=== PATIENT | female | born 1975 | race Caucasian/White ===

== ENCOUNTER 2020-09-30 14:00 | Emergency (ER) | payer BC ==
[2020-09-30] MEDS ORDERED: METHYLPREDNISOLONE 125 MG INJ ONE (18:18)
--- NOTE | 2020-09-30 18:26 | RAD REPORT ---
EXAM DESCRIPTION: RAD - Chest Single View - 09/30/2020 5:36 pm CLINICAL HISTORY: DYSPNEA COMPARISON: No comparisons FINDINGS: Widespread airspace disease bilaterally which is moderate in severity. The heart size is w ithin normal limits.No acute osseous abnormality. No significant pleural effusions or pneumothorax. IMPRESSION: Moderate to severe bilateral airspace disease concerning for multifocal pneumonia, inclu ding Covid-19.
[2020-09-30 20:37] LABS: Absolute Lymphocytes (CBC) 0.7 K/uL (0.7-4.9); Basophils % 0.2 % (0-1.3); Hematocrit 42.3 % (36.0-45.0); MPV 7.9 fL (7.6-11.3); RBC Red Blood Cell Count 5.14 M/uL (3.86-4.86)
[2020-09-30 20:56] LABS: ALT/SGPT 67 U/L (12-78); Albumin 2.8 g/dL (3.4-5.0); Alkaline Phosphatase 84 U/L (45-117); BUN Blood Urea Nitrogen 9 mg/dL (7-18); Bicarbonate 22 mmol/L (21-32); Bilirubin Direct 0.2 mg/dL (0-0.2); Bilirubin Total 0.6 mg/dL (0.2-1.0); Ferritin 615.7 ng/mL (8-388); Glucose Level 87 mg/dL (74-106); Lipase 52 U/L (73-393); Protein, Total 7.1 g/dL (6.4-8.2); Sodium Level 139 mmol/L (136-145); Troponin (Emerg Dept Use Only) < 0.02 ng/mL (0.0-0.045)
[2020-09-30 21:01] LABS: AST/SGOT 61 U/L (15-37); Potassium 4.4 mmol/L (3.5-5.1)
--- NOTE | 2020-10-01 00:11 | EDPHYS ---
Physician Documentation [facility] Name: Keeley Britt Age: 45 yrs Sex: Female : 1975 Arrival Date: 09/30/2020 Time: 14:03 Bed 14 Private MD: ED Physician Philip Campos HPI: 09/30 23:26 This 45 yrs old Female presents to ER via Wheelchair with complaints of kb Tingling in Arms, Cough. 23:27 The patient or guardian reports cough, that is intermittent, described as moderate, kb with no sputum, difficulty breathing, flu symptoms, low-grade fever, myalgias, no appetite. Onset: The symptoms/episode began/occurred 2 week(s) ago. Severity of symptoms: At their worst the symptoms were moderate, in the emergency department the symptoms are unchanged. Modifying factors: The symptoms are alleviated by nothing, the symptoms are aggravated by nothing. Associated signs and symptoms: Pertinent positives: fever, Pertinent negatives: chest pain, diarrhea, ear ache, nausea, rhinorrhea, sore throat, vomiting. The patient has not experienced similar symptoms in the past. The patient has been recently seen by a physician: with similar presenting complaints, and apparently given a diagnosis of Bronchitis, seen at clinic in [place]. Pt reports cough, congestion, fever, chills, shortness of breath, bodyaches, near syncope. Symptoms started 2 weeks ago and have been getting worse. . Historical: - Allergies: 14:36 Sulfa (Sulfonamide Antibiotics); ll1 14:36 bee sting; ll1 14:36 Betadine; ll1 - PMHx: 14:36 Asthma; ll1 - PSHx: 14:36 section; ll1 - Immunization history:: Client reports having NOT received the Covid vaccine. Flu vaccine is not up to date. - Social history:: Smoking status: Patient denies any tobacco usage or history of. ROS: 23:28 Cardiovascular: Negative for chest pain, palpitations, and edema. kb 23:28 Constitutional: Positive for body aches, chills, fatigue, fever, malaise. 23:28 Respiratory: Positive for cough, dyspnea on exertion, shortness of breath, Negative for hemoptysis, orthopnea, pleurisy, wheezing. 23:28 Abdomen/GI: Positive for diarrhea, Negative for abdominal pain, nausea and vomiting. 23:28 Neuro: Positive for near syncope, Negative for altered mental status, dizziness, gait disturbance, headache, hearing loss, loss of consciousness, numbness, seizure activity, speech changes, syncope, tingling, tinnitus, tremor, visual changes, weakness. 23:28 All other systems are negative. Exam: 23:28 Head/Face: Normocephalic, atraumatic. ENT: Moist Mucous membranes Cardiovascular: kb Regular rate and rhythm with a normal S1 and S2. No gallops, murmurs, or rubs. No pulse deficits. Abdomen/GI: Soft, non-tender. No distention Skin: Warm, dry with normal turgor. Normal color. MS/ Extremity: Pulses equal, no cyanosis. Neurovascular intact. Full, normal range of motion. Neuro: Awake and alert, GCS 15, oriented to person, place, time, and situation. Moves all extremities. Normal gait. Psych: Awake, alert, with orientation to person, place and time. Behavior, mood, and affect are within normal limits. 23:28 Constitutional: The patient appears alert, awake, obviously ill, uncomfortable. 23:28 Respiratory: mild respiratory distress is noted, Respirations: labored breathing, that is mild, tachypnea, that is mild, Breath sounds: are clear throughout. Vital Signs: 14:37 BP 113 / 97; Pulse 97; Resp 20; Temp 98.4; Pulse Ox 94% ; Weight 108.86 kg; Height 5 ll1 ft. 6 in. (167.64 cm); Pain 9/10; 17:30 BP 126 / 92; Pulse 94; Resp 24; Pulse Ox 93% on R/A; ph 20:00 BP 100 / 70; Pulse 99; Resp 24; Pulse Ox 93% 3 lpm ; ea 23:32 BP 114 / 69; Pulse 94; Resp 22; Pulse Ox 96% on 3 lpm NC; ea 10/01 01:00 BP 109 / 72; Pulse 84; Resp 23; Pulse Ox 91% on 3 lpm NC; ea 02:23 BP 108 / 75; Pulse 79; Resp 22; Temp 98.2; Pulse Ox 90% on 3 lpm NC; ea 09/30 14:37 Body Mass Index 38.74 (108.86 kg, 167.64 cm) ll1 MDM: 09/30 16:44 Patient medically screened. kb 23:24 Data reviewed: vital signs, nurses notes. Data interpreted: Pulse oximetry: on room air kb is 91 %. Interpretation: borderline. Counseling: I had a detailed discussion with the patient and/or guardian regarding: the historical points, exam findings, and any diagnostic results supporting the discharge/admit diagnosis, lab results, radiology results, the need for further work-up and treatment in the hospital. ED course: No COVID beds available. Transfer has been initiated.. 23:26 ED course: PT reports feeling faint when ambulating. Pt walked from stretcher across restrepo to restroom and sats decreased to 82%.. 23:30 ED course: All [facility] facilities at capacity. kb 23:51 ED course: Transfer initiated to [facility] at 2351. Spoke to Akanksha in the transfer center. Stated no beds at [facility], but possible availability at the [facility]. Awaiting callback. 10/01 00:10 ED course: Dr Mena at [facility] in the [facility] accepts pt for transfer. 09/30 14:44 Order name: Flu; Complete Time: 16:32 kb 09/30 16:33 Order name: SARS-COV-2 RT PCR; Complete Time: 16:33 EDMS 09/30 16:55 Order name: BMP kb 09/30 16:55 Order name: Blood Culture Adult (2) 09/30 16:55 Order name: C-Reactive Protein; Complete Time: 21:04 kb 09/30 16:55 Order name: CBC with Diff; Complete Time: 20:44 kb 09/30 16:55 Order name: Ferritin; Complete Time: 21:04 kb 09/30 16:55 Order name: LFT's; Complete Time: 21:04 kb 09/30 16:55 Order name: Lactate; Complete Time: 20:57 kb 09/30 16:55 Order name: Lipase; Complete Time: 21:04 kb 09/30 16:55 Order name: Procalcitonin; Complete Time: 21:04 kb 09/30 16:55 Order name: Troponin (emerg Dept Use Only); Complete Time: 21:04 kb 09/30 16:55 Order name: CXR XRAY; Complete Time: 18:27 kb 09/30 16:55 Order name: EKG; Complete Time: 16:55 kb 09/30 16:55 Order name: Cardiac monitoring; Complete Time: 17:51 kb 09/30 16:55 Order name: Droplet/Contact Precautions; Complete Time: 17:08 kb 09/30 16:55 Order name: EKG - Nurse/Tech; Complete Time: 19:45 kb 09/30 16:55 Order name: IV Start; Complete Time: 17:51 kb 09/30 16:55 Order name: O2 Per Protocol; Complete Time: 17:09 kb 09/30 16:55 Order name: O2 Sat Monitoring; Complete Time: 17:09 kb 09/30 16:55 Order name: Basic Metabolic Panel; Complete Time: 21:04 EDMS 09/30 17:24 Order name: Misc. Order: Ambulate and check sat; Complete Time: 19:13 kb 09/30 23:44 Order name: CT Chest For PE Angio kb Administered Medications: 09/30 19:10 Drug: SOLU-Medrol (methylPrednisoLONE) 125 mg Route: IVP; Site: left hand; ph 20:00 Follow up: Response: No adverse reaction ea Disposition: 10/01 07:00 Co-signature as Attending Physician, Philip Campos MD I agree with the assessment and rn plan of care. Attestation: The patient's history, exam findings, diagnostics, and a summary of any interventions or procedures was reviewed in detail with Radha SAPP. Disposition Summary: 10/01/20 00:11 Transfer Ordered Transfer Location: Other Acute Care Facility kb Reason: Higher level of care kb Condition: Fair kb Problem: new kb Symptoms: are unchanged kb Accepting Physician: Dr Mena(10/01/20 02:23) ea Diagnosis - Hypoxia kb - Coronavirus infection, unspecified kb - Viral pneumonia, unspecified kb Forms: - Medication Reconciliation Form kb - SBAR form kb Signatures: Dispatcher [employer] EDRadha Parra FNP-C FNP-CkPhilip Wilde MD MD rn Hall, Patricia, RN RN ph Antunez, Elena, RN RN ea Lewis, Lynsay, RN RN ll1 Corrections: (The following items were deleted from the chart) 09/30 15:15 14:44 CORONAVIRUS+MR.LAB.BRZ ordered. [facility] 23:56 23:51 ED course: Transfer initiated to [facility] at 2351. Spoke to Leonila in the transfer kb center. Stated no beds at [facility], [facility] Awaiting callback. rosa 10/01 02:23 00:11 Dr Rajesh lee ea
--- NOTE | 2020-10-01 00:11 | ER ---
Nurse's Notes [facility] Name: Keeley Britt Age: 45 yrs Sex: Female : 1975 Arrival Date: 09/30/2020 Time: 14:03 Bed 14 Private MD: Diagnosis: Hypoxia;Coronavirus infection, unspecified;Viral pneumonia, unspecified Presentation: 09/30 14:37 Chief complaint: Patient states: Cough, congestion, diarrhea, body aches, DIAZ, near ll1 syncope feeling for 2 weeks. Seen in [place] last week, diagnosed with bronchitis and URI. Drove home , been sick and fatigued ever since. Coronavirus screen: Client denies travel out of the [place] in the last 14 days. chills, congestion, cough unrelated to allergies, diarrhea, difficulty breathing, fatigue, fever, headache, muscle pain, nausea, runny nose, shaking with chills, shortness of breath, sore throat, Client presents with at least one sign or symptom that may indicate coronavirus-19. Standard/surgical mask placed on the client. Ebola Screen: Patient denies travel to an Ebola-affected area in the 21 days before illness onset. Initial Sepsis Screen: Does the patient meet any 2 criteria? HR > 90 bpm. No. Patient's initial sepsis screen is negative. Does the patient have a suspected source of infection? Yes: Productive cough/pneumonia. Risk Assessment: Do you want to hurt yourself or someone else? Patient reports no desire to harm self or others. Onset of symptoms was September 17, 2020. 14:37 Method Of Arrival: Wheelchair ll1 14:37 Acuity: ARSENIO 3 ll1 Historical: - Allergies: 14:36 Sulfa (Sulfonamide Antibiotics); ll1 14:36 bee sting; ll1 14:36 Betadine; ll1 - PMHx: 14:36 Asthma; ll1 - PSHx: 14:36 section; ll1 - Immunization history:: Client reports having NOT received the Covid vaccine. Flu vaccine is not up to date. - Social history:: Smoking status: Patient denies any tobacco usage or history of. Screenin:02 Abuse screen: Denies threats or abuse. Denies injuries from another. Nutritional ph screening: No deficits noted. Tuberculosis screening: No symptoms or risk factors identified. Fall Risk None identified. Assessment: 17:59 General: Appears in no apparent distress. comfortable, obese, well groomed, Behavior is ph calm, cooperative, appropriate for age, Reports chills for fatigue for >3 days. Pain: Complains of pain in "all over". Neuro: Level of Consciousness is awake, alert, obeys commands, Oriented to person, place, time, situation, Reports dizziness, since approx 2 weeks. Neuro: Reports weakness in " all over". Cardiovascular: Capillary refill < 3 seconds in bilateral fingers Patient's skin is warm and dry. Respiratory: Reports shortness of breath at rest cough that is Airway is patent Respiratory effort is even, unlabored, Respiratory pattern is tachypnea. GI: Reports diarrhea, nausea. Derm: Skin is intact, Skin is pink, warm \\T\\ dry. Musculoskeletal: Circulation, motion, and sensation intact. Range of motion: intact in all extremities. 19:13 Reassessment: Spo2 decreased to 84% after ambulating short distance to restroom, ph improved to 94% on o2. 19:30 General: Appears uncomfortable, Behavior is calm, cooperative, appropriate for age. ea Pain: Denies pain. Neuro: Level of Consciousness is awake, alert, obeys commands, Oriented to person, place, time, situation. Cardiovascular: Patient's skin is warm and dry. Respiratory: Airway is patent Respiratory effort is labored, Respiratory pattern is tachypnea. Derm: Skin is pink, warm \\T\\ dry. Musculoskeletal: Circulation, motion, and sensation intact. 21:49 Reassessment: Patient and/or family updated on plan of care and expected duration. Pain ea level reassessed. Patient is alert, oriented x 3, equal unlabored respirations, skin warm/dry/pink. Pt reports she is feeling better as long as she is not moving around. Remains on O2 at 3L per nasal cannula. 10/01 00:17 Reassessment: Patient and/or family updated on plan of care and expected duration. Pain ea level reassessed. Patient is alert, oriented x 3, equal unlabored respirations, skin warm/dry/pink. Pt remains on O2 at 3L per nasal cannula, tolerating well. 00:18 Reassessment: Patient and/or family updated on plan of care and expected duration. Pain ea level reassessed. Patient is alert, oriented x 3, equal unlabored respirations, skin warm/dry/pink. Pt taken to CT. 01:00 Reassessment: Patient and/or family updated on plan of care and expected duration. Pain ea level reassessed. Patient is alert, oriented x 3, equal unlabored respirations, skin warm/dry/pink. Reassessment: Patient and/or family updated on plan of care and expected duration. Pain level reassessed. Patient is alert, oriented x 3, equal unlabored respirations, skin warm/dry/pink. [facility] EMS at facility for transfer. Pt left ED via stretcher per EMS pt tolerating well. Vital Signs: 09/30 14:37 BP 113 / 97; Pulse 97; Resp 20; Temp 98.4; Pulse Ox 94% ; Weight 108.86 kg; Height 5 ll1 ft. 6 in. (167.64 cm); Pain 9/10; 17:30 BP 126 / 92; Pulse 94; Resp 24; Pulse Ox 93% on R/A; ph 20:00 BP 100 / 70; Pulse 99; Resp 24; Pulse Ox 93% 3 lpm ; ea 23:32 BP 114 / 69; Pulse 94; Resp 22; Pulse Ox 96% on 3 lpm NC; ea 10/01 01:00 BP 109 / 72; Pulse 84; Resp 23; Pulse Ox 91% on 3 lpm NC; ea 02:23 BP 108 / 75; Pulse 79; Resp 22; Temp 98.2; Pulse Ox 90% on 3 lpm NC; ea 09/30 14:37 Body Mass Index 38.74 (108.86 kg, 167.64 cm) ll1 ED Course: 09/30 14:03 Patient arrived in ED. ds1 14:36 Arm band placed on. ll1 14:40 Triage completed. ll1 15:02 Radha Clemente FNP-C [facility]. kb 15:02 Philip Campos MD is Attending Physician. kb 17:06 Karely Wells RN is Primary Nurse. ph 17:36 CXR XRAY In Process Unspecified. EDMS 18:02 Patient has correct armband on for positive identification. Placed in gown. Bed in low ph position. Call light in reach. Side rails up X 1. Pulse ox on. NIBP on. Door closed. Noise minimized. Warm blanket given. 18:02 Inserted saline lock: 22 gauge in left antecubital area, using aseptic technique. ph 18:58 Inserted saline lock: 24 gauge in left hand, using aseptic technique. ,using aseptic ss technique. attempted to draw labs. No success. IV flushes with ease. Phlebotomy paged to attempt to draw labs. LEONIDES Garcia notified. 23:22 Called [facility] to initiate transfer. Was on hold and call disconnected itself after tt3 waiting so long. 23:26 Initiated transfer at [facility] with Dakota. Stated he would do a bed check at all campuses tt3 and call back. Information passed on to JOSETTE Underwood, pt provider. 23:44 Dakota from [facility] called back and stated they would have to decline the transfer request tt3 due to capacity. 23:46 JOSETTE Underwood, pt provider called [facility] again to initiate transfer. tt3 Transfer was initiated with Akanksha Torres. 10/01 00:05 Akanksha called back with their physician to do Doc to Doc consultation with JOSETTE Prakash, pt provider. 00:15 Inserted saline lock: 22 gauge in right forearm, using aseptic technique. ea 00:15 No provider procedures requiring assistance completed. Patient transferred, IV remains ea in place. 00:34 Akanksha Torres gave admin approval. The accepting physician is Dr. Spear. The pt is going tt3 to [facility] 3-E-16. Nurse to call report to . Face sheet to be faxed to per Akanksha's request. 00:46 CT Chest For PE Angio In Process Unspecified. EDMS Administered Medications: 09/30 19:10 Drug: SOLU-Medrol (methylPrednisoLONE) 125 mg Route: IVP; Site: left hand; ph 20:00 Follow up: Response: No adverse reaction ea Outcome: 10/01 00:11 ER care complete, transfer ordered by MD. lee 02:20 Transferred by ground EMS to [facility], [facility], Transfer form completed. ea 02:20 Condition: stable 02:20 Instructed on the need for transfer, Demonstrated understanding of instructions. 02:23 Patient left the ED. ea Signatures: Dispatcher [employer] EDMS Clemente Radha, BREAKER UNIT ASSEMBLER-C BREAKER UNIT ASSEMBLER-Ckb Gladys Leblanc ds1 Allegra Villalta, RN RN Karely Zaldivar, RN RN Rosita Weber RN RN Daina Suarez RN RN ll1 Tasha, Reggie tt3
[2020-10-01 02:44] VITALS: BP 108/75; TEMP 98.2; O2SAT 90
--- NOTE | 2020-10-01 16:50 | RAD REPORT ---
EXAM DESCRIPTION: Chest For Pe Angio RadLex: CT CHEST ANGIOGRAPHY WITH IV CONTRAST CLINICAL HISTORY: DYSPNEA. COMPARISON: None. TECHNIQUE: CTA of the chest was performed following intravenous administration of iodinated contrast . Axial soft tissue and bone window, and coronal and sagittal soft tissue window reconstructions were created and sent to PACS. 3D postprocessing was performed on an independent workstation, with images sent to PACS for subsequen t review. This exam was performed according to our departmental dose-optimization program, which includes autom ated exposure control, adjustment of the mA and/or kV according to patient size and/or use of iterati ve reconstruction technique. FINDINGS: Vascular: The pulmonary arteries are adequately opacified to the segmental level. No CT ev idence of acute pulmonary thromboembolism. No evidence of aortic aneurysm or dissection. Lungs and pleura: Moderate to severe patchy groundglass opacifications and regions of interstitial th ickening throughout both lungs, with a slight peripheral predominance in the right lower lobe. Small calcified granuloma in the left upper lobe. No pleural effusion. No pneumothorax. Mediastinum and neck: Mild mediastinal and moderate left hilar lymphadenopathy, with a left hilar lym ph node measuring up to 1.2 cm short axis. Partially calcified left hilar lymph nodes. Unremarkable a ppearance of the thyroid gland. Cardiac: No cardiomegaly or pericardial effusion. Abdomen: Diffuse hepatic steatosis. Musculoskeletal: No concerning osseous abnormality. IMPRESSION: 1. No CTA evidence of acute pulmonary thromboembolism. 2. Moderate to severe patchy groundglass opacities and interstitial thickening. Correlate for viral pneumonia. 3. Mild mediastinal and moderate left hilar lymphadenopathy, likely reactive. 4. Diffuse hepatic steatosis. Electronically signed by: Marlin Koch MD 10/01/2020 12:58 AM CDT Due to temporary technical issues with the PACS/Fluency reporting system, reports are being signed by the in house radiologists without review as a courtesy to insure prompt reporting. The interpreting radiologist is fully responsible for the content of the report.
== END 2020-10-01 02:23 ==
LOC: ER 14:00
DX: U07.1 COVID-19 (principal); J12.9 Viral pneumonia, unspecified; Z88.2 Allergy status to sulfonamides; Z88.8 Allergy status to other drugs, medicaments and biological substances; Z91.030 Bee allergy status
CPT/HCPCS: 93005; 87040; 85025; 80048; 36415; 80076; 83605; 84484; 82728; 83690; 84145; 86140; 87804 ×2; 71275; 71045; 96374; 99285; U0003; Q9967; J2930

== ENCOUNTER 2023-06-12 01:56 | Emergency (ER) | payer BC ==
[2023-06-12] MEDS ORDERED: KETOROLAC 30 MG/ML INJ ONE (02:26)
[2023-06-12] MEDS ORDERED: FENTANYL CITR 100 MCG/2 ML ONE ×2 (02:27→04:38)
[2023-06-12] MEDS ORDERED: NA CHLORIDE 0.9% 1,000 ML ONE (02:27)
[2023-06-12 03:14] LABS: Specific Gravity 1.017 (1.005-1.030)
[2023-06-12 03:19] LABS: Specific Gravity 1.018 (1.005-1.030); Sqamous Epithelial <5 /HPF (None Seen); Urine Bacteria None Seen /HPF (<20); Urine Bilirubin NEGATIVE (Negative); Urine Blood Negative (Negative); Urine Clarity Turbid (Clear); Urine Color Light-Yellow (Yellow); Urine Culture Reflex Order NOT NEEDED; Urine Glucose NEGATIVE (Negative); Urine Ketones NEGATIVE (Negative); Urine Microscopic Reflex YN ORDER UMIC; Urine Mucus Slight /HPF (None Seen); Urine Nitrite NEGATIVE (Negative); Urine Protein NEGATIVE (Negative); Urine RBC None Seen /HPF (None Seen); Urine Urobilinogen Normal (Normal); Urine WBC <5 /HPF (<5)
[2023-06-12 03:20] LABS: Absolute Basophils 0.1 K/uL (0-0.5); Absolute Eosinophils 0.1 K/uL (0-0.5); Absolute Lymphocytes (CBC) 1.8 K/uL (0.7-4.9); Absolute Monocytes 0.5 K/uL (0.1-1.3); Basophils % 1.1 % (0-1.3); Eosinophils % 1.3 % (0-4.4); Hematocrit 42.5 % (36.0-45.0); Hemoglobin 14.6 g/dL (12.0-15.0); Lymphocytes % 20.6 % (15.3-44.8); MCH 28.3 pg (27.0-35.0); MCHC 34.4 g/dL (32.0-36.0); MCV 82.5 fL (80-100); MPV 7.3 fL (7.6-11.3); Monocytes % 6.3 % (3.3-12.3); Neutrophils % 70.7 % (41.7-73.7); Nucleated Red Blood Cells % 0.1 % (0-0); Platelets 242 thou/uL (152-406); RBC Red Blood Cell Count 5.15 M/uL (3.86-4.86); Red Cell Distribution Width 13.6 % (12.1-15.2)
[2023-06-12 03:30] LABS: Albumin 3.2 g/dL (3.4-5.0); Albumin/Globulin Ratio 0.8 (1.1-1.8); Anion Gap 10.7 mEq/L (5.0-15.0); Bilirubin Total 0.3 mg/dL (0.2-1.0); Globulin 3.9 g/dL (2.3-3.5); Potassium 3.7 mEq/L (3.5-5.1); Protein, Total 7.1 g/dL (6.4-8.2)
[2023-06-12] MEDS ORDERED: dexAMETHasone 10 MG/ML VIAL ONE (04:38)
[2023-06-12] MEDS ORDERED: HALOPERIDOL LACT 5 MG/ML INJ ONE (04:38)
--- NOTE | 2023-06-12 05:30 | ER ---
Nurse's Notes [facility] Name: Keeley Britt Age: 48 yrs Sex: Female : 1975 Arrival Date: 06/12/2023 Time: 01:56 Bed 20 Private MD: Diagnosis: Low back pain;Acute right lower back pain, musculoskeletal pain Presentation: 06/11 02:04 Chief complaint: Patient states: Severe Right lower back pain that started Friday jw7 Night. Coronavirus screen: At this time, the client does not indicate any symptoms associated with coronavirus-19. Ebola Screen: No symptoms or risks identified at this time. Initial Sepsis Screen: Does the patient meet any 2 criteria? No. Patient's initial sepsis screen is negative. Does the patient have a suspected source of infection? No. Patient's initial sepsis screen is negative. Risk Assessment: Do you want to hurt yourself or someone else? Patient reports no desire to harm self or others. Onset of symptoms was June 09, 2023. 02:04 Method Of Arrival: Wheelchair jw7 02:04 Acuity: ARSENIO 3 jw7 Triage Assessment: 02:06 General: Appears in no apparent distress. uncomfortable, Behavior is calm, cooperative, jw7 anxious, crying. Pain: Complains of pain in right low back Pain does not radiate. Pain currently is 10 out of 10 on a pain scale. Quality of pain is described as sharp, stabbing, Pain began 2-3 days ago. Is continuous, Alleviated by repositioning. EENT: No deficits noted. No signs and/or symptoms were reported regarding the EENT system. Neuro: Level of Consciousness is awake, alert, obeys commands, Oriented to person, place, time, situation. Cardiovascular: Heart tones S1 S2 present Capillary refill < 3 seconds Clubbing of nail beds is absent JVD is absent Patient's skin is warm and dry. Respiratory: Airway is patent Trachea midline Respiratory effort is even, unlabored, Respiratory pattern is regular, symmetrical, tachypnea. GI: Abdomen is round non-distended, Bowel sounds present X 4 quads. Abd is soft and non tender X 4 quads. : No deficits noted. No signs and/or symptoms were reported regarding the genitourinary system. Derm: Skin is intact, is healthy with good turgor, Skin is dry, Skin is normal, Skin temperature is warm. Musculoskeletal: Circulation, motion, and sensation intact. Range of motion: intact in all extremities. Historical: - Allergies: 02:06 bee sting; jw7 02:06 Betadine; jw7 02:06 Sulfa (Sulfonamide Antibiotics); jw7 - Home Meds: 02:06 Mounjaro subcutaneous 15 mg [Active]; jw7 - PMHx: 02:06 Asthma; jw7 - PSHx: 02:06 section; Tumor Removal (Head); Knee (Left); AVN Decompression; abdominoplasty jw7 (waldo mayo); - Immunization history:: Adult Immunizations up to date, Client reports having NOT received the Covid vaccine. Last tetanus immunization: < 10 years ago Flu vaccine is not up to date. - Social history:: Smoking status: Patient denies any tobacco usage or history of. Patient/guardian denies using alcohol, street drugs, IV drugs. - Family history:: not pertinent. Screenin:12 [facility] ED Fall Risk Assessment (Adult) History of falling in the last 3 months, jw7 including since admission No falls in past 3 months (0 pts) Confusion or Disorientation No (0 pts) Intoxicated or Sedated No (0 pts) Impaired Gait Yes (1 pt) Mobility Assist Device Used No (0 pt) Altered Elimination No (0 pt) Score/Fall Risk Level 0 - 2 = Low Risk Oriented to surroundings, Maintained a safe environment, Educated pt \T\ family on fall prevention, incl call for assistance when getting out of bed. Abuse screen: Denies threats or abuse. Denies injuries from another. Nutritional screening: No deficits noted. Tuberculosis screening: No symptoms or risk factors identified. Assessment: 02:13 General: See Triage Assessment. jw7 03:15 Reassessment: Patient appears in no apparent distress at this time. Patient and/or jw7 family updated on plan of care and expected duration. Pain level reassessed. Patient is alert, oriented x 3, equal unlabored respirations, skin warm/dry/pink. Patient states symptoms have improved. 04:15 Reassessment: Patient appears in no apparent distress at this time. Patient and/or jw7 family updated on plan of care and expected duration. Pain level reassessed. Patient is alert, oriented x 3, equal unlabored respirations, skin warm/dry/pink. Pt c/o recurring lower back pain, Provider Notified. 05:30 Reassessment: Patient appears in no apparent distress at this time. Patient and/or jw7 family updated on plan of care and expected duration. Pain level reassessed. Patient is alert, oriented x 3, equal unlabored respirations, skin warm/dry/pink. Patient states feeling better. Patient states symptoms have improved. Vital Signs: 02:04 BP 144 / 86; Pulse 71; Resp 26 S; Temp 97.9(O); Pulse Ox 100% on R/A; Weight 86.18 kg; jw7 Height 5 ft. 6 in. ; Pain 10/10; 03:00 BP 105 / 69; Pulse 63; Resp 19 S; Pulse Ox 95% on R/A; jw7 04:02 BP 98 / 72; Pulse 62; Resp 19 S; Pulse Ox 98% on R/A; jw7 05:30 BP 106 / 65; Pulse 56; Resp 18 S; Pulse Ox 98% on R/A; jw7 02:04 Body Mass Index 30.67 (86.18 kg, 167.64 cm) jw7 02:04 Pain Scale: Adult jw7 [place] Coma Score: 05:22 Eye Response: spontaneous(4). Motor Response: obeys commands(6). Verbal Response: sp4 oriented(5). Total: 15. ED Course: 01:58 Patient arrived in ED. ra3 02:01 Francis Elizabeth MD is Attending Physician. sp4 02:04 Rosanna Glover RN is Primary Nurse. jw7 02:06 Triage completed. jw7 02:06 Arm band placed on. jw7 02:12 Patient has correct armband on for positive identification. Bed in low position. Call [facility] light in reach. Provided Education on: Use of Call Light. 02:30 Initial lab(s) drawn, by me, sent to lab. Inserted saline lock: 22 gauge in right jw antecubital area, using aseptic technique. Blood collected. 03:40 CT Abd/Pelvis - Without Contrast In Process Unspecified. EDMS 05:46 No provider procedures requiring assistance completed. jw7 05:55 IV discontinued, intact, bleeding controlled, No redness/swelling at site. Pressure jw7 dressing applied. Administered Medications: 02:22 Not Given (Patient Refused): morphineor iv 8 mg IVP once over 4 mins sp4 02:44 Drug: Ketorolac IVP 30 mg IVP once Route: IVP; Site: right antecubital; jw7 04:02 Follow up: Response: No adverse reaction; Marked relief of symptoms; Pain is decreased jw7 02:44 Drug: NS 0.9% IV 1000 ml IV at 125 ml/hr continuous Route: IV; Rate: 125 ml/hr; Site: jw7 right antecubital; 05:54 Follow up: Response: No adverse reaction; IV Status: Completed infusion; IV Intake: jw7 350ml 02:44 Drug: fentaNYL (PF) IVP 100 mcg IVP once Route: IVP; Site: right antecubital; jw7 04:02 Follow up: Response: No adverse reaction; Marked relief of symptoms; Pain is decreased jw7 04:48 Drug: fentaNYL (PF) IVP 100 mcg IVP once Route: IVP; Site: right antecubital; jw7 05:43 Follow up: Response: No adverse reaction; Marked relief of symptoms; Pain is decreased jw7 04:48 Drug: Haloperidol IVP 5 mg IVP once Route: IVP; Site: right antecubital; jw7 05:43 Follow up: Response: No adverse reaction; Marked relief of symptoms; Anxiety decreased jw7 04:48 Drug: Dexamethasone IM 10 mg IM once Route: IM; Site: left deltoid; jw7 05:44 Follow up: Response: No adverse reaction jw7 05:44 Not Given (Patient Refused): ondansetron 4 mg IVP once; over 2 minutes jw7 Medication: 05:46 VIS not applicable for this client. jw7 Intake: 05:54 IV: 350ml; Total: 350ml. jw7 Outcome: 05:30 Discharge ordered by . sp4 05:55 Discharged to home via wheelchair, with family, jw7 05:55 Condition: stable 05:55 Discharge instructions given to patient, Instructed on discharge instructions, follow up and referral plans. medication usage, Demonstrated understanding of instructions, follow-up care, medications, Prescriptions given X 4, 05:55 Patient left the ED. jw7 Signatures: [facility] Rosanna Glover RN RN jw7 Francis Elizabeth MD MD sp4 Fara Dominique ra3 Corrections: (The following items were deleted from the chart) 04:15 Reassessment: Patient appears in no apparent distress at this time. No changes jw7 from previously documented assessment. Patient and/or family updated on plan of care and expected duration. Pain level reassessed. Patient is alert, oriented x 3, equal unlabored respirations, skin warm/dry/pink. jw7 05:00 Reassessment: Patient appears in no apparent distress at this time. Patient jw7 and/or family updated on plan of care and expected duration. Pain level reassessed. Patient is alert, oriented x 3, equal unlabored respirations, skin warm/dry/pink. pt c/o recurring pain to lower back, Provider notified. jw7 05:00 Reassessment: Patient appears in no apparent distress at this time. Patient jw7 and/or family updated on plan of care and expected duration. Pain level reassessed. Patient is alert, oriented x 3, equal unlabored respirations, skin warm/dry/pink. Patient states feeling better. Patient states symptoms have improved. jw7
--- NOTE | 2023-06-12 05:31 | EDPHYS ---
Physician Documentation [facility] Name: Keeley Britt Age: 48 yrs Sex: Female : 1975 Arrival Date: 06/12/2023 Time: 01:56 Bed 20 Private MD: ED Physician Francis Elizabeth HPI: 06/11 02:01 This 48 yrs old Female presents to ER via Unassigned with complaints of Low sp4 Back Pain, Abdominal Pain. 05:22 48-year-old female presents with moderate to severe pain right lower back associated sp4 with radiation into the right flank. . 05:22 Patient states pain is started Friday night pain is worse on standing up.. sp4 Historical: - Allergies: 02:06 bee sting; jw7 02:06 Betadine; jw7 02:06 Sulfa (Sulfonamide Antibiotics); jw7 - Home Meds: 02:06 Mounjaro subcutaneous 15 mg [Active]; jw7 - PMHx: 02:06 Asthma; jw7 - PSHx: 02:06 section; Tumor Removal (Head); Knee (Left); AVN Decompression; abdominoplasty jw7 (tummy tuck); - Immunization history:: Adult Immunizations up to date, Client reports having NOT received the Covid vaccine. Last tetanus immunization: < 10 years ago Flu vaccine is not up to date. - Social history:: Smoking status: Patient denies any tobacco usage or history of. Patient/guardian denies using alcohol, street drugs, IV drugs. - Family history:: not pertinent. ROS: 05:22 Constitutional: Negative for fever, chills, and weight loss, positive back pain and sp4 positive right flank pain 05:22 All other systems are negative, Exam: 05:22 Constitutional: This is a well developed, well nourished patient who is awake, alert, sp4 and in moderate distress secondary to pain. Head/Face: Normocephalic, atraumatic. Eyes: Pupils equal round and reactive to light, extra-ocular motions intact. Lids and lashes normal. Conjunctiva and sclera are not injected. Cornea within normal limits. Periorbital areas with no swelling, redness, or edema. ENT: Nares patent. No nasal discharge, no septal abnormalities noted. Tympanic membranes are normal and external auditory canals are clear. Oropharynx with no redness, swelling, or masses, exudates, or evidence of obstruction, uvula midline. Mucous membranes moist. Neck: Trachea midline, no thyromegaly or masses palpated, and no cervical lymphadenopathy. Supple, full range of motion without nuchal rigidity, or vertebral point tenderness. Chest/axilla: Normal chest wall appearance and motion. Nontender with no deformity. No lesions are appreciated. Cardiovascular: Regular rate and rhythm with a normal S1 and S2. No gallops, murmurs, or rubs. Normal PMI, no JVD. No pulse deficits. Respiratory: Lungs have equal breath sounds bilaterally, clear to auscultation and percussion. No rales, rhonchi or wheezes noted. No increased work of breathing, no retractions or nasal flaring. Abdomen/GI: Soft, with normal bowel sounds. No distension or tympany. No guarding or rebound. No evidence of tenderness throughout. Back: No spinal tenderness. No costovertebral tenderness. Skin: Warm, dry with normal turgor. Normal color with no rashes, no lesions, and no evidence of cellulitis. MS/ Extremity: Pulses equal, no cyanosis. Neurovascular intact. Full, normal range of motion. Neuro: Awake and alert, GCS 15, oriented to person, place, time, and situation. Cranial nerves II-XII grossly intact. Motor strength 5/5 in all extremities. Sensory grossly intact. Psych: Awake, alert, with orientation to person, place and time. Anxious appearing Vital Signs: 02:04 BP 144 / 86; Pulse 71; Resp 26 S; Temp 97.9(O); Pulse Ox 100% on R/A; Weight 86.18 kg; 7 Height 5 ft. 6 in. ; Pain 10/10; 03:00 BP 105 / 69; Pulse 63; Resp 19 S; Pulse Ox 95% on R/A; [facility] 04:02 BP 98 / 72; Pulse 62; Resp 19 S; Pulse Ox 98% on R/A; [facility] 05:30 BP 106 / 65; Pulse 56; Resp 18 S; Pulse Ox 98% on R/A; 7 02:04 Body Mass Index 30.67 (86.18 kg, 167.64 cm) [facility] 02:04 Pain Scale: Adult [facility] Brian Coma Score: 05:22 Eye Response: spontaneous(4). Motor Response: obeys commands(6). Verbal Response: sp4 oriented(5). Total: 15. MDM: 02:01 Patient medically screened. sp4 04:19 ED course: EXAM DESCRIPTION: Abdomen Pelvis Wo Contrast CLINICAL HISTORY: right pelvic sp4 pain COMPARISON: None Available TECHNIQUE: Contiguous axial images of the abdomen and pelvis were obtained after the administration of intravenous contrast followed by reconstruction images.This exam was performed according to our departmental dose-optimization program, which includes automated exposure control, adjustment of the mA and/or kV according to patient size and/or use of iterative reconstruction technique. FINDINGS: There is a nonobstructive stone within the right kidney. Calcifications within the pelvis compatible phleboliths. There is a 3.2 cm cyst within the left adnexa compatible with an ovarian cyst, Hounsfield units of 6. The liver, spleen, pancreas and kidneys are within normal limits. There is no hydronephrosis or renal stones. The gallbladder is unremarkable by CT criteria. Adrenal glands are within normal limits. Aorta is of normal caliber and tapering. There is no free fluid in the abdomen or pelvis. There is no bowel obstruction. There is no stranding of the mesenteric fat to suggest an inflammatory response. The appendix is within normal limits. There is no pericecal inflammation. IMPRESSION: 1. No acute intra-abdominal abnormality. 2. 3.2 cm left adnexal simple-appearing cyst. No follow-up imaging is recommended. . 05:25 Differential diagnosis: arthritis, strain, fracture, sciatica, contusion, Herniated sp4 disc UTI. Data reviewed: vital signs, nurses notes, lab test result(s), radiologic studies, CT scan. Consideration of Admission/Observation Escalation of care including admission/observation considered. ED course: Patient has improved after medication administration. Patient is feeling better. Patient was able to stand up and ambulate. There is no sign of neurologic compromise. Patient is stable for discharge home with as needed pain medication and muscle relaxant. . 06/11 02:06 Order name: CBC with Diff; Complete Time: 03:38 sp4 06/11 02:06 Order name: CMP; Complete Time: 03:38 sp4 06/11 02:06 Order name: Lipase; Complete Time: :38 sp4 06/11 02:06 Order name: Urinalysis w/ reflexes; Complete Time: 03:38 sp4 06/11 02:06 Order name: Test, Urine; Complete Time: 03:38 sp4 06/11 02:23 Order name: CT Abd/Pelvis - Without Contrast sp4 06/11 02:06 Order name: IV Saline Lock; Complete Time: 02:54 sp4 06/11 02:06 Order name: Labs collected and sent; Complete Time: 02:54 sp4 06/11 02:52 Order name: Misc. Order: RECOLLECT ALL LABS; Complete Time: 02:54 rv1 Administered Medications: 02:22 Not Given (Patient Refused): morphineor iv 8 mg IVP once over 4 mins sp4 02:44 Drug: Ketorolac IVP 30 mg IVP once Route: IVP; Site: right antecubital; jw7 04:02 Follow up: Response: No adverse reaction; Marked relief of symptoms; Pain is decreased jw7 02:44 Drug: NS 0.9% IV 1000 ml IV at 125 ml/hr continuous Route: IV; Rate: 125 ml/hr; Site: [facility] right antecubital; 05:54 Follow up: Response: No adverse reaction; IV Status: Completed infusion; IV Intake: jw7 350ml 02:44 Drug: fentaNYL (PF) IVP 100 mcg IVP once Route: IVP; Site: right antecubital; jw7 04:02 Follow up: Response: No adverse reaction; Marked relief of symptoms; Pain is decreased jw7 04:48 Drug: fentaNYL (PF) IVP 100 mcg IVP once Route: IVP; Site: right antecubital; jw7 05:43 Follow up: Response: No adverse reaction; Marked relief of symptoms; Pain is decreased jw7 04:48 Drug: Haloperidol IVP 5 mg IVP once Route: IVP; Site: right antecubital; jw7 05:43 Follow up: Response: No adverse reaction; Marked relief of symptoms; Anxiety decreased jw7 04:48 Drug: Dexamethasone IM 10 mg IM once Route: IM; Site: left deltoid; jw7 05:44 Follow up: Response: No adverse reaction jw7 05:44 Not Given (Patient Refused): ondansetron 4 mg IVP once; over 2 minutes jw7 Disposition Summary: 06/12/23 05:30 Discharge Ordered Notes: We recommend 3 days bed rest
No heavy lifting for 2 weeks Location: Home sp4 Problem: new sp4 Symptoms: have improved sp4 Condition: Stable sp4 Diagnosis - Low back pain sp4 - Acute right lower back pain, musculoskeletal pain sp4 Followup: sp4 - With: Private Physician - When: 7 - 10 days - Reason: Recheck today's complaints Discharge Instructions: - Discharge Summary Sheet sp4 - Acute Back Pain, Adult sp4 Forms: - Patient Portal Instructions sp4 Prescriptions: - acetaminophen-codeine 300-60 mg Oral tablet - take 1 tablet ORAL route every 6 hours PRN pain; 20 tablet; Refills: 0, Product sp4 Selection Permitted - Ibuprofen 800 mg Oral Tablet - take 1 tablet ORAL route every 8 hours As needed take with food; 30 tablet; sp4 Refills: 0, Product Selection Permitted - promethazine 25 mg Oral tablet - take 1 tablet ORAL route every 6 hours As needed; 30 tablet; Refills: 0, sp4 Product Selection Permitted - methocarbamol 750 mg Oral tablet - take 2 tablets ORAL route 4 times per day for 2 days PRN back pain; 60 tablet; sp4 Refills: 0, Product Selection Permitted Signatures: Dispatcher [employer] Rosanna Paredes RN RN jw7 [place]usha [place] rv1 Francis Elizabeth MD MD sp4
[2023-06-12 06:10] VITALS: BP 106/65; TEMP 97.9; O2SAT 98
--- NOTE | 2023-06-12 10:58 | RAD REPORT ---
EXAM DESCRIPTION: Abdomen Pelvis Wo Contrast CLINICAL HISTORY: Right pelvic pain COMPARISON: None Available TECHNIQUE: Contiguous axial images of the abdomen and pelvis were obtained after the administration of intravenous contrast followed by reconstruction images.This exam was performed according to our de partmental dose-optimization program, which includes automated exposure control, adjustment of the mA and/or kV according to patient size and/or use of iterative reconstruction technique. FINDINGS: There is a nonobstructive stone within the right kidney. Calcifications within the pelvis compatible phleboliths. There is a 3.2 cm cyst within the left adnexa compatible with an ovarian cyst , Hounsfield units of 6. The liver, spleen, pancreas and kidneys are within normal limits. There is no hydronephrosis or renal stones. The gallbladder is unremarkable by CT criteria. Adrenal glands are within normal limits. Aor ta is of normal caliber and tapering. There is no free fluid in the abdomen or pelvis. There is no vini wel obstruction. There is no stranding of the mesenteric fat to suggest an inflammatory response. The appendix is within normal limits. There is no pericecal inflammation. IMPRESSION: 1. No acute intra-abdominal abnormality. 2. 3.2 cm left adnexal simple-appearing cyst. No follow-up imaging is recommended. Reference: JACR 2019;17(2):[id number] Electronically signed by: Nicola Pascual MD 06/12/2023 04:09 AM CDT Due to temporary technical issues with the PACS/Fluency reporting system, reports are being signed by the in house radiologist without review as a courtesy to ensure prompt reporting. The interpreting r adiologist is fully responsible for the content of the report.
== END 2023-06-12 05:55 | disposition home or self-care (01) ==
LOC: ER 01:56
DX: M54.50 Low back pain, unspecified (principal); M79.18 Myalgia, other site; Z28.310 Unvaccinated for COVID-19; Z88.2 Allergy status to sulfonamides; Z88.3 Allergy status to other anti-infective agents; Z91.030 Bee allergy status
CPT/HCPCS: 96361; 85025; 81001; 36415; 81025; 83690; 80053; 74176; 96375; 96372; 96374; 99284; J1630; J3010 ×2; J1100; J7030